=== PATIENT | female | born 1990 | race Caucasian/White ===

== ENCOUNTER 2017-07-30 13:04 | Emergency (ER) | payer OTHER ==
[~2017-07-30] VITALS: Ht 170.2 cm; Wt 113.4 kg
--- NOTE | ~2017-07-30 | EKG ---
[address] [place] [address] ELECTROCARDIOGRAM REPORT Name: ABDIRASHID ELLISON Room #: DEP PAM Fleming#: [id number] Admission: 07/30/17 Attend Phys: Discharge: 07/30/17 Date of : [birth year] Report #: [id number] THIS REPORT FOR: //name// [facility] ED Test Date: 2017-07-30 Test Time: 13:20:31 Pat Name: ABDIRASHID ELLISON Department: Room: Gender: F [employer]: : 1990 Requested By: Denton Luna Order Number: [id number] MD: Gautam Martinez Measurements Intervals [place] Rate: 63 P: 30 MO: 146 QRS: 49 QRSD: 82 T: 38 QT: 377 QTc: 386 Interpretive Statements Sinus rhythm Normal tracing No previous ECG available for comparison Electronically Signed On 07-30-2017 16:55:15 CDT by Gautam Martinez [email or web address] <ELECTRONICALLY SIGNED> By: Gautam Martinez MD, [facility] 07/30/17 1655 1320 1320 Gautam Martinez MD, FACC /EPI
[2017-07-30 13:49] LABS: ABSOLUTE NEUTROPHILS 6.1 thou/uL (1.4-8.2); BASOPHILS 0.8 % (0.0-2.0); EOSINOPHILS 1.4 % (0.0-3.0); HEMATOCRIT 42.4 % (37.0-47.0); HEMOGLOBIN 13.9 gm/dL (12.0-15.0); LYMPHOCYTES 33.7 % (24.0-44.0); MCH 27.6 pg (26.0-34.0); MCHC 32.7 g/dL (28.0-37.0); MCV 84.3 fL (80.0-100.0); MONOCYTES 5.2 % (1.0-8.0); PLATELET COUNT 313 thou/uL (150-400); POLYS 58.9 % (36.0-66.0); RBC 5.03 mil/uL (4.20-5.00); RDW 14.2 % (10.5-14.5); WBC 10.4 thou/uL (4.0-11.0)
[2017-07-30 13:51] LABS: ANION GAP 8 mmol/L (7-16); BUN 8 mg/dL (7-18); CALCIUM 9.4 mg/dL (8.5-10.1); CHLORIDE 103 mmol/L (98-107); CO2 25 mmol/L (21-32); CREATININE 0.9 mg/dL (0.6-1.0); GLUCOSE 98 mg/dL (74-106); POTASSIUM 3.9 mmol/L (3.5-5.1); SODIUM 136 mmol/L (136-145)
[2017-07-30 14:00] LABS: TROPONIN-I < 0.04 ng/mL (<0.06)
[2017-07-30 14:58] VITALS: BP 153/90
== END 2017-07-30 14:47 | disposition home or self-care (01) ==
LOC: ER 13:04
PROVIDERS: Physician Assistant
DX: R07.9 Chest pain, unspecified (principal); R42 Dizziness and giddiness; F17.210 Nicotine dependence, cigarettes, uncomplicated; Z88.0 Allergy status to penicillin